=== PATIENT | female | born 1990 | race Caucasian/White ===

== ENCOUNTER 2016-11-18 13:27 | Emergency (ER) | payer SELFPAY ==
[~2016-11-18] VITALS: Ht 157.5 cm; Wt 87.1 kg
[2016-11-18 13:40] VITALS: BP 155/98
--- NOTE | 2016-11-18 14:13 | NUR ---
PATIENT PRESENTS TO ED WITH SPIDER BITE X 4 DAYS AGO, NOT PRESENTS WITH RIGHT WRIST SWELLING, APPEARS TO BE AN ABCESS TO WRIST . DENIES N/V/D; SKIN IS PINK/WARM/DRY; AAOX4 WITH EVEN AND STEADY GAIT; PT DENIES ANY FEVER, CP, SOB, OR COUGH AT THIS TIME; PATIENT STATES PAIN OF 5/10 AT THIS TIME; VSS; PATIENT POSITIONED FOR COMFORT; HOB ELEVATED;; BED DOWN. ER MD MADE AWARE OF PT STATUS.
[2016-11-18] MEDS ORDERED: LIDOCAINE 1% 500 MG/50 ML VIAL INJ ONE (15:15)
[2016-11-18] MEDS ORDERED: LIDOCAINE 1% ED 50 ML ONE (15:17)
--- NOTE | 2016-11-18 15:42 | NUR ---
Patient discharged with v/s stable. Written and verbal after care instructions given and explained. Patient alert, oriented and verbalized understanding of instructions. Ambulatory with steady gait. All questions addressed prior to discharge. ID band removed. Patient advised to follow up with PMD. Rx of KEFLEX, BACTRIM, MOTRIN, NORCO given. Patient educated on indication of medication including possible reaction and side effects. Opportunity to ask questions provided and answered.
[2016-11-18 15:48] VITALS: BP 155/98
== END 2016-11-18 15:42 | disposition home or self-care (01) ==
LOC: MED 13:27
DX: L02.413 Cutaneous abscess of right upper limb (principal)
CPT/HCPCS: 10060; 99283; J2001

== ENCOUNTER 2018-08-31 18:56 | Emergency (ER) | payer SELFPAY ==
--- NOTE | 2018-08-31 19:50 | NUR ---
PATIENT CALLED TO BE TRIAGE NO RESPONSE
--- NOTE | 2018-08-31 19:50 | NUR ---
PATIENT LEFT WITHOUT BEING SEEN BY DR. FREY. NO FURTHER CARE PROVIDED FOR PATIENT.
--- NOTE | 2018-08-31 19:55 | NUR ---
CALLED FOR THE SECOND TIME NO RESPONSE
--- NOTE | 2018-08-31 20:00 | NUR ---
CALLED FOR THE THIRD TIME NO RESPONSE.PATIENT LEFT WITHOUT BEING SEEN BY DR. FREY. NO FURTHER CARE PROVIDED FOR PATIENT.
== END 2018-08-31 19:50 | disposition left against medical advice (07) ==
LOC: MED 18:56
DX: Z53.21 Procedure and treatment not carried out due to patient leaving prior to being seen by health care provider (principal)